=== PATIENT | male | born 1965 | race African-American/Black ===

== ENCOUNTER 2017-03-10 07:09 | Emergency (ER) | payer SELFPAY ==
[2017-03-10] MEDS ORDERED: Lidocaine 1% 20 ML MDV ONE (07:28)
[2017-03-10] MEDS ORDERED: Bacitracin Zinc 1 Packet ONE (08:01)
== END 2017-03-10 08:09 | disposition home or self-care (01) ==
LOC: NAV ERS 07:09
DX: S61.012A Laceration without foreign body of left thumb without damage to nail, initial encounter (principal); W45.8XXA Other foreign body or object entering through skin, initial encounter
CPT/HCPCS: 12001; J2001

== ENCOUNTER 2017-10-12 13:43 | Outpatient (CLI) | payer OTHER, SELFPAY ==
--- NOTE | 2017-10-12 14:58 | RAD ---
RIGHT SHOULDER 2 VIEWS: Date: 10/12/17 HISTORY: Pain. COMPARISON: None. FINDINGS: Small bone island of the humeral head. No fracture. No malalignment. Mild acromioclavicular degenerat deb disease. Ribs unremarkable. IMPRESSION: No acute abnormality. POS: [facility]
--- NOTE | 2017-10-12 15:03 | RAD ---
CERVICAL SPINE AP AND LATERAL STANDARD: History: Disability evaluation. Neck pain. Comparison: None. FINDINGS: The open mouth odontoid view is normal. There is reversal of normal cervical lordosis due to degenera tive narrowing of the cervical spine at multiple levels. Mild facet arthropathy. No acute fracture or malalignment. IMPRESSION: Chronic changes. No acute abnormality. POS: [facility]
== END 2017-10-12 13:44 | disposition home or self-care (01) ==
LOC: NAV RAD 13:43
PROVIDERS: ATTEND Family Medicine
DX: M54.2 Cervicalgia (principal); M25.511 Pain in right shoulder
CPT/HCPCS: 72040